=== PATIENT | male | born 1940 | race Caucasian/White ===

== ENCOUNTER → 2016-12-05 | Outpatient (CLI) | payer MEDICARE ==
[2016-12-05 13:08] LABS: ANION GAP 7 MEQ/L (5-15); AST (GOT) 15 U/L (15-37); BICARBONATE 25.6 MEQ/L (21.0-32.0); BLOOD UREA NITROGEN 21 MG/DL (7-18); CHLORIDE 106 MEQ/L (98-107); GLOMERULAR FILTRATION RATE 73 ML/MIN (>89); GLUCOSE,FASTING 90 MG/DL (74-99); POTASSIUM 4.2 MEQ/L (3.5-5.1); SODIUM (NA) 139 MEQ/L (136-145)
[2016-12-05 13:12] LABS: ALKALINE PHOSPHATASE 80 U/L (45-117); ALT (GPT) 17 U/L (12-78); FREE T4 1.52 NG/DL (0.76-1.46); LDL CHOLESTEROL 92 MG/DL (0-99); LDL CHOLESTEROL DIRECT 105 MG/DL (0-99); TOTAL BILIRUBIN ADULT 0.6 MG/DL (0.2-1.0)
[2016-12-05 13:27] LABS: HEMOGLOBIN A1a 1.1 %; HEMOGLOBIN A1b 1.8 %; HEMOGLOBIN Ao 85.1 %
== END ==
LOC: PLAB 08:51
PROVIDERS: ATTEND Family Medicine
DX: R53.83 Other fatigue (principal); E78.4 Other hyperlipidemia; E03.8 Other specified hypothyroidism; R73.01 Impaired fasting glucose
CPT/HCPCS: 36415; 80053; 80061; 83036; 83721; 84439; 85652

== ENCOUNTER 2017-05-30 08:57 | Inpatient (IN) | payer MEDICARE ==
[~2017-05-30] VITALS: Ht 180.3 cm; Wt 101.4 kg
[2017-05-30] MEDS ORDERED: SYNT175T PO (09:46)
[2017-05-30] MEDS ORDERED: TRAM50TA PO (09:46)
[2017-05-30] MEDS ORDERED: BENA25CA4 PO (09:48)
[2017-06-10] MEDS ORDERED: CHLORHEXIDINE GLUCONATE 2 % 1 PACK (2 CLOTHS) TOPICAL PRN (08:00)
[2017-06-10] MEDS ORDERED: INSULIN HUMAN REGULAR 1,000 UNITS/10 ML VIAL SQ PRN (08:00)
[2017-06-10] MEDS ORDERED: METOPROLOL TARTRATE 25 MG TAB PO PRN (08:00)
[2017-06-10] MEDS ORDERED: SODIUM CHLORID 0.9% 500 ML IV PRN (08:00)
[2017-06-10] MEDS ORDERED: LACTATED RINGER'S 1000 ML IV PRN (08:00)
[2017-06-10] MEDS ORDERED: POVIDONE IODINE 5% (ANTISEPSIS KIT) 4 APPLICATIONS EACH NARE PRN (08:00)
[2017-06-10] MEDS ORDERED: ceFAZolin 2 GM PREMIX 50 ML ONE (08:04)
[2017-06-10] MEDS ORDERED: GENTAMICIN SULFATE 80 MG/2 ML VIAL ONE (08:04)
[2017-06-10] MEDS ORDERED: TRANEXAMIC ACID IV SCH ×2 (08:15→12:00)
[2017-06-10] MEDS ORDERED: EXPAREL PERI-ARTICULAR INJECTION (TOTAL VOL. 60 ML) P-ARTICULR SCH ×2 (08:15)
[2017-06-10] MEDS ORDERED: SODIUM CHLORIDE 0.9% IV SCH ×2 (08:15→12:00)
[2017-06-10] MEDS ORDERED: ceFAZolin 2 GM PREMIX 50 ML IV SCH (08:15)
[2017-06-10] MEDS ORDERED: CHLORHEXIDINE GLUCONATE 4% SOLN 120 ML BTL TOPICAL SCH (08:15)
[2017-06-10] MEDS ORDERED: ACETAMINOPHEN 1000 MG/100 ML VIAL IV ONE (08:37)
[2017-06-10] MEDS ORDERED: Post-op Orders (for Pharmacy) MISC XX ONE (09:30)
[2017-06-10] MEDS ORDERED: MAGNESIUM HYDROXIDE SUSP 30 ML CUP PO PRN (09:30)
[2017-06-10] MEDS ORDERED: SODIUM CHLORIDE 0.9% FLUSH 5 ML FLUSH IVF PRN (09:30)
[2017-06-10] MEDS ORDERED: MORPHINE SULFATE 4 MG/ML INJ IV PUSH PRN (09:30)
[2017-06-10] MEDS ORDERED: ONDANSETRON HCL 4 MG/2 ML VIAL IVP PRN (09:30)
[2017-06-10] MEDS ORDERED: TRANEXAMIC ACID INJ 0 MG in SODIUM CHLORIDE 0.9% INJ 100 ML IV SCH (09:30)
[2017-06-10] MEDS ORDERED: ZOLPIDEM TARTRATE 5 MG TAB PO PRN (09:30)
[2017-06-10] MEDS ORDERED: diphenhydrAMINE HCL ELIXIR 12.5 MG/5 ML CUP PO PRN (10:15)
[2017-06-10] MEDS ORDERED: LACTATED RINGER'S 1000 ML INJ 1,000 ML IV ONE (12:00)
[2017-06-10] MEDS ORDERED: ONDANSETRON HCL 4 MG/2 ML VIAL IV PUSH ONE (12:00)
[2017-06-10] MEDS ORDERED: ePHEDrine/NS 25 MG/5 ML SYR IV ONE (12:00)
[2017-06-10] MEDS ORDERED: PHENYLEPH/NS 1000 MCG/10 ML SYR IV ONE (12:00)
[2017-06-10] MEDS ORDERED: PROPOFOL 200 MG/20 ML AMP IV ONE (12:00)
--- NOTE | 2017-06-10 12:33 | HHI.FF ---
Face to Face Verification Diagnosis: (1) Status post total left knee replacement Physical Therapy Gait training Knee: Total knee, Protocol: Left, Gait training, Full weight bearing Left LE Weight Bearing: WB as tolerated Left LE Range of Motion: Active ROM Additional Instructions AROM, AAROM, PROM, PRE. ROM goal is 0 to 135 degrees Nursing Nursing: Dressing changes Dressing Changes: Daily dressing change, Coverderm/Primapore Additional Instructions Remove steristrips on postop day 14. I have seen patient Lito Kowalski on 06/10/17. My clinical findings support the need for the requested home health care services because: Ltd mobility - disease progression Limited ability to care for self High risk of falls I certify that my clinical findings support that this patient is homebound because: Post-op weakness Unsteady gait/balance Unsafe to leave home unassisted Ander Wolf MD ([place]) Jun 10, 2017 12:33
[2017-06-10] MEDS ORDERED: *morphine SULFATE 8 MG/ML PERIprocedure ONLY ONE (13:00)
[2017-06-10] MEDS: LACTATED RINGER'S 1000 ML INJ 1,000 ML IV SCH ×2 (13:00→22:33)
[2017-06-10] MEDS: KETOROLAC TROMETHAMINE 30 MG/ML (IVP) VIAL IVP SCH ×2 (13:00→17:00)
[2017-06-10] MEDS ORDERED: DO NOT ADM ANY ANTICOAGULANT DRUGS PRN (13:15)
--- NOTE | 2017-06-10 15:35 | PD.CONS ---
[facility] By Dr. Vero Wolf Reason for Consult Medical management Primary Care Physician Price Molina MD Diagnoses: History of Present Illness This is a 76-year-old male presenting with chronic left knee pain affecting his activities of daily living. He has osteoarthritis underwent total knee replacement by Dr. Vero Wolf who requested consultation to evaluate and manage multiple medical conditions. Anesthesia records reviewed. He was hemodynamically stable. Received 1400 mL crystalloid and EBL 100 mL. In the preop area, he was noted to have irregular heartbeat on telemetry. Preop EKG showed sinus arrhythmia. Patient reports that a generator technician was contacted and cleared him for surgery today. Patient states he had a repeat EKG at his [facility] which showed sinus rhythm. He also was evaluated by his oncologist less than a year ago and underwent unremarkable echocardiogram. Denies chest pain, palpitations and shortness of breath. He also has hypothyroidism with therapeutic TSH on Synthroid, obstructive sleep apnea on C Pap since 2005 and melanoma status post removal from his face followed by Dr. Roth. At this time , he reports of numbness of the left lower extremity status post nerve block. All other systems reviewed negative Review of Systems Except as stated in HPI: all other systems reviewed are Neg Past Family Social History Allergies: Uncoded Allergies: 3 M ADHESIVE TAPE (Allergy, Severe, RASH, 05/30/17) CALCIUM DISODIUM EDTA (Allergy, Severe, RASH, 05/30/17) TRIPLE ANTIBIOTIC OINTMENT (Allergy, Mild, Rash, 06/10/17) Past Medical History As previously mentioned Past Surgical History Extensive surgical history including tonsillectomy, cataract surgery, left biceps abscess evacuation, bunionectomy, so shoulder replacement, hip replacement and subsequent revision, right knee replacement carpal tunnel release, cholecystectomy, Reported Medications Benadryl Allergy (Diphenhydramine HCl) 25 Mg Cap 12.5 Mg PO DIRECTED PRN Tramadol (Tramadol HCl) 50 Mg Tab 50 Mg PO Q6H PRN Synthroid (Levothyroxine Sodium) 175 Mcg Tab 175 Mcg PO DAILY Family History Diabetes mellitus Social History Quit tobacco and -[id number] pack year smoking history occasional alcohol use Physical Exam Vital Signs Vital Signs Date Time Temp Pulse Resp B/P Pulse Ox O2 Delivery O2 Flow Rate FiO2 06/10/17 12:45 72 15 148/78 99 Simple Mask 8 06/10/17 12:37 97.5 75 18 149/87 97 Simple Mask 8 Physical Exam GENERAL: This is a well-nourished, well-developed patient, in no apparent distress. SKIN: No rashes, ecchymoses or lesions. Cool and dry. HEAD: Atraumatic. Normocephalic. No temporal or scalp tenderness. EYES: Pupils equal round and reactive. Extraocular motions intact. No scleral icterus. No injection or drainage. ENT: Nose without bleeding, purulent drainage or septal hematoma. Throat without erythema, tonsillar hypertrophy or exudate. Uvula midline. Airway patent. NECK: Trachea midline. No JVD or lymphadenopathy. Supple, nontender, no meningeal signs. CARDIOVASCULAR: Regular rate and regular rhythm without murmurs, gallops, or rubs. RESPIRATORY: Clear to auscultation. Breath sounds equal bilaterally. No wheezes , rales, or rhonchi. GASTROINTESTINAL: Abdomen soft, non-tender, nondistended. No guarding. MUSCULOSKELETAL: Extremities without clubbing, cyanosis, or edema. Left lower extremity in a CPM NEUROLOGICAL: Awake and alert. Cranial nerves II through XII intact. Motor and sensory grossly within normal limits. Five out of 5 muscle strength in all muscle groups. Normal speech. Laboratory Preop labs reviewed unremarkable CBC, INR, BMP and urinalysis. TSH therapeutic. EKG tracing interpreted by me with sinus arrhythmia Laboratory Tests Test 06/10/17 08:10 Blood Type A POSITIVE Antibody Screen NEGATIVE Blood Bank Comment Assessment and Plan Assessment and Plan This is a 76-year-old male presenting with chronic left knee pain affecting his activities of daily living. He has osteoarthritis underwent total knee replacement by Dr. Vero Wolf who requested consultation to evaluate and manage multiple medical conditions. Anesthesia records reviewed. He was hemodynamically stable. Received 1400 mL crystalloid and EBL 100 mL. he is stable continue postoperative care with physical therapy, wound care, incentive spirometry, DVT prophylaxis with aspirin and pain management with Lortab and IV morphine. Sinus arrhythmia. Patient has had multiple evaluations for arrhythmia and has been ruled out for A. fib. Patient is asymptomatic. TSH is therapeutic. Hypothyroidism with therapeutic TSH on Synthroid Obstructive sleep apnea on C Pap since 2005 . Continue C Pap with home settings Melanoma status post removal from his face followed by Dr. Roth. Outpatient follow-up Discussed Condition With Patient Rene Woodward MD Jun 10, 2017 15:35
[2017-06-10 16:00] VITALS: BP 147/97; PULSE 62; RESP 18; TEMP 97; O2SAT 100
--- NOTE | 2017-06-10 16:08 | RADRPT ---
EXAM DATE/TIME: 06/10/2017 12:50 [place] COMPARISON: No previous studies available for comparison. INDICATIONS : Post op left toal knee replacement. MEDICAL HISTORY : None. SURGICAL HISTORY : None. ENCOUNTER: Initial ACUITY: 1 day PAIN SCORE: Non-responsive. LOCATION: Left knee. FINDINGS: Two view examination of the left knee patient is status post total knee replacement. The prosthetic c omponents appear well-placed. There is a suprapatellar drain in place. No fracture is seen. CONCLUSION: Good placement of a total knee prosthesis. Bipin Galeas MD on June 10, 2017 at 16:05 Board Certified Radiologist. This report was verified electronically.
[2017-06-10 17:45] VITALS: O2SAT 96
[2017-06-10 19:51] VITALS: BP 149/78; PULSE 65; RESP 18; TEMP 97.3; O2SAT 98
[2017-06-10] MEDS: ASPIRIN EC 81 MG TABEC PO SCH (21:00)
[2017-06-10] MEDS: SODIUM CHLORIDE 0.9% FLUSH 5 ML FLUSH IVF SCH (21:00)
--- NOTE | 2017-06-10 23:27 | MP ---
cc: Zacarias JACOBSON. DATE OF SURGERY 06/10/17 PREOPERATIVE DIAGNOSIS Primary osteoarthritis left knee POSTOPERATIVE DIAGNOSIS Primary osteoarthritis left knee OPERATION PERFORMED Left total knee arthroplasty with Jas triathlon prosthesis (uncemented). SURGEON Carlo Jacobson MD CLOUD SUBJECT MATTER EXPERT Sandy WILDER. ANESTHESIA Spinal with supplemental adductor canal block and local. INDICATIONS AND FINDINGS This 76-year-old man has had left knee pain for over 2 years which has progressively worsened over the past 9 months. He can walk up to 30 minutes but has to stop because of pain. He has difficulty standing from a seated position with significant crepitation. He has difficulty ascending and descending stairs. Treatment has included analgesics, anti-inflammatory agents, activity modification, intra-articular corticosteroids, visco-supplementation and exercises. He also uses some ambulatory aids. Physical findings showed some significant deformity, particularly in his medial suprapatellar area with there being crepitation in the medial, lateral and patellofemoral compartments. Imaging studies showed severe osteoarthritis in the left knee with loss of articular cartilage to [id number] in the medial and lateral compartments with prominent medial and lateral osteophytes and a large irregular osteophyte in the medial aspect of the patellofemoral joint. There was also deformity in the patellofemoral joint. A CT scan confirmed these findings. The prosthesis used was a [place] triathlon prosthesis with the femur being a size seven cruciate-retaining with a porous coated backing, the tibia being a tritanium baseplate size eight (uncemented) and the spacer being a cruciate-retaining 9 mm spacer of X3 polyethylene and the patella being a tritanium backed patella size 35 mm asymmetric. PROCEDURE IN DETAIL The patient was brought to the clean-air operating suite where a spinal anesthetic was administered followed by an adductor canal block. He was placed in the supine position on the operating table with a small bolster under the left hip. A pneumatic tourniquet was applied to the left thigh. The limb was then prepped with alcohol, Hibiclens and Chloraprep and draped in the usual manner with the knee draped free. An appropriate time-out procedure was carried out. Local anesthesia was administered with Exparel during the procedure at various intervals. After the appropriate time-out and local anesthetic in the skin, an incision was made from about three fingerbreadths above the superior medial pole of the patella down to the tibial tubercle. The incision was deepened through the subcutaneous tissues to the retinacular structures which were exposed medially and laterally. A medial retinacular incision was made from the superior medial pole of patella down to the tibial tubercle and then up to the quadriceps tendon splitting it longitudinally in the medial one-third. The patella was reflected. Medial and lateral dissection was carried out. Attention was directed to the patella. After debulking the infrapatellar fat pad, the patella clamps were applied. The posterior surface of patella was excised with the oscillating saw taking care to prevent injuries to the extensor mechanism. A patella protector was applied to the posterior surface of the patella. The patella was slipped into the lateral gutter. Fenestration was made in the distal femur and proximal tibia for intermedullary referencing guides. a distal femoral cutting guide and jig were assembled for a 5 degree 8-mm cut. At this time, it was found that the cutting guide would not position appropriately because of the large osteophyte and bone fragment on the superior medial aspect of the medial femoral condyle. This was then initially partially debulked with the oscillating saw to get this to a reasonable size. The distal femoral cutting guide and jig were assembled for the 5 degree 8-mm cut and then where the cutting block was stabilized with pins at this time. The distal femoral cut was made with the oscillating saw. A sizing guide was then positioned along the epicondylar axis. White sides line was obliterated due to arthritis. With this positioned appropriately, the size was determined to be a size seven. The 4:1 cutting block was positioned in place and stabilized with pins. Anterior and posterior cuts were made followed by posterior and anterior chamfer cuts. The femoral cuts were then assessed with the stylus. Osteophytes were trimmed from the femur. Medial and lateral meniscectomies were initiated. The proximal tibial cutting guide and jig was then assembled appropriately and positioned for rotation. The depth of cut was verified off the low side on the medial side resecting 2 mm. The cutting guide was stabilized with pins. The jig was removed. The distal proximal tibial cut was completed with the oscillating saw taking care to prevent injury to neurovascular and ligamentous structures. The spacer block verified this was an appropriate cut. The osteophytes were trimmed from the tibia and the femur. The femoral posterior osteophytes were removed. The tibial trial prosthesis was inserted for a size eight. Nine mm spacer was inserted. The femoral component which was a size seven was impacted into place. The patella drill guide was positioned for a 32 mm asymmetric patella. After drill holes were made, the trial prosthesis was inserted into this. The tibial implant was stabilized with pins. The range of motion was checked and was found to be 0 degrees extension to about 145 degrees of flexion with excellent stability throughout the entire range. This was done with the retinaculum closed with a towel clip. The femoral drill holes were made. Femoral and patella trials were removed. The tibial spacer trial was removed. The tibial punch was impacted through its guide after placement of bone graft in the proximal tibia. The tibial drill guide was positioned in place and drill holes made. Osteophytes were trimmed from the tibia as well. Local antibiotic was then administered throughout the knee posteriorly and into the capsular areas. The tibial baseplate which was a size eight tritanium was impacted into place and seated appropriately. A 9 mm spacer was inserted. This was impacted into place. The femoral component was then impacted into place onto the cleaned and dried femoral surface. This showed excellent position and alignment. The patella was positioned in place and stabilized using the patella vice. The knee was taken through a range of motion which was comparable to that with a trial prosthesis. The stability was excellent. Drains were brought out the superolateral aspect of the suprapatellar pouch. Wound closure then commenced using 0 Vicryl interrupted [id number] sutures for the retinacular structures and capsular structures, 2-0 Vicryl interrupted simple sutures with buried knots for the subcutaneous tissues and 4-0 Monocryl continuous subcuticular closure for the skin. The wound was dressed with Steri-Strips followed by dry dressing, sterile Sof-Rol, cooling pad, further sterile Sof-Rol and Kevin bandage from the base of the toe to mid thigh. The patient was transferred to the recovery room in satisfactory condition having tolerated the procedure well. Counts were correct. Specimens none. Estimated blood loss 250 mL. MD SAVANNAH Welsh/ /12:16 PM /10:56 PM
[2017-06-11] VITALS (7 sets, daily range): BP systolic 132–162; BP diastolic 78–99; PULSE 68–99; RESP 18; TEMP 96.8–98.5; O2SAT 94–97
[2017-06-11] MEDS: KETOROLAC TROMETHAMINE 30 MG/ML (IVP) VIAL IVP SCH ×4 (02:02→16:41)
[2017-06-11] MEDS ORDERED: LEVOTHYROXINE SODIUM 75 MCG TAB PO SCH (06:00)
[2017-06-11] MEDS ORDERED: LEVOTHYROXINE SODIUM 100 MCG TAB PO SCH (06:00)
--- NOTE | 2017-06-11 06:56 | PD.ORT.PN ---
Subjective Post Op Day #: 1 Subjective Remarks He is doing well. There is almost no pain at rest and only 5/10 walking. Range of Motion -15 to 80 degrees. Distance Walked 15 feet with PT. Objective Vitals Vital Signs Date Time Temp Pulse Resp B/P Pulse Ox O2 Delivery O2 Flow Rate FiO2 06/11/17 04:15 98.5 88 18 158/91 96 06/11/17 00:33 98.3 78 18 134/78 97 06/10/17 19:51 97.3 65 18 149/78 98 06/10/17 19:38 Room Air 06/10/17 18:40 16 06/10/17 17:45 96 21 06/10/17 16:00 97.0 62 18 147/97 100 06/10/17 15:30 97.6 75 16 150/82 96 Room Air 06/10/17 15:00 72 16 152/83 95 Room Air 06/10/17 14:30 69 15 153/82 94 Room Air 06/10/17 14:00 97.5 67 15 150/84 99 Nasal Cannula 2 06/10/17 13:45 69 15 156/88 98 Nasal Cannula 2 06/10/17 13:30 67 15 155/85 97 Nasal Cannula 2 06/10/17 13:15 68 15 163/81 98 Nasal Cannula 3 06/10/17 13:00 70 15 151/83 96 Nasal Cannula 3 06/10/17 12:45 72 15 148/78 99 Simple Mask 8 06/10/17 12:37 97.5 75 18 149/87 97 Simple Mask 8 I/O 06/10/17 06/10/17 06/10/17 06/11/17 06/11/17 06/11/17 06:59 14:59 22:59 06:59 14:59 22:59 Intake Total 1400 ml 1274 ml 1058 ml Output Total 1050 ml 1020 ml 860 ml Balance 350 ml 254 ml 198 ml Intake Oral 360 ml 360 ml IV Total 914 ml 698 ml Other 1400 ml Output Urine Total 950 ml 350 ml 800 ml Drainage Total 670 ml 60 ml Estimated Blood Loss 100 ml # Bowel Movements 0 0 Imaging Last 24 hours Impressions Knee X-Ray 06/10/17 0924 Signed Impressions: Service Date/Time: Saturday, June 10, 2017 12:50 - CONCLUSION: Good placement of a total knee prosthesis. Bipin Galeas MD Objective Remarks He is resting comfortably, OOB in the chair.. The neurovascular status is intact. The dressing is dry and intact. Assessment & Plan Ortho Post Op Day #: 1 Problem List: (1) Status post total left knee replacement Plan: Continue postop care and PT. Assessment and Plan Condition: Good. Orthopaedically stable. DVT prophylaxis: TEDs, ASA, sequentials. Discharge plans: Home with [facility]. Has appointment. Rx: [place] 7.5/325. Ander Wolf MD ([place]) Jun 11, 2017 06:56
[2017-06-11] MEDS ORDERED: HYDR-3580 PO (07:25)
[2017-06-11] MEDS ORDERED: ASPI-99 PO (07:26)
[2017-06-11 07:41] LABS: HEMATOCRIT 32.3 % (39.0-51.0); REVIEW FLAG FINAL
[2017-06-11] MEDS: SODIUM CHLORIDE 0.9% FLUSH 5 ML FLUSH IVF SCH (09:00)
[2017-06-11] MEDS: ASPIRIN EC 81 MG TABEC PO SCH (09:00)
[2017-06-11] MEDS: ACETAMINOPHEN/HYDROcodone 325 MG/7.5 MG TAB PO PRN ×4 (09:24→18:53)
[2017-06-11] MEDS: LACTATED RINGER'S 1000 ML INJ 1,000 ML IV SCH (10:24)
--- NOTE | 2017-06-11 11:35 | HHI.PR ---
Subjective Remarks Follow-up orthopedic surgery. Doing okay out of bed to chair required by mouth and IV narcotic. Objective Vitals Vital Signs Date Time Temp Pulse Resp B/P Pulse Ox O2 Delivery O2 Flow Rate FiO2 06/11/17 10:09 95 06/11/17 08:00 96.8 84 18 162/99 95 06/11/17 04:15 98.5 88 18 158/91 96 06/11/17 00:33 98.3 78 18 134/78 97 06/10/17 19:51 97.3 65 18 149/78 98 06/10/17 19:38 Room Air 06/10/17 18:40 16 06/10/17 17:45 96 21 06/10/17 16:00 97.0 62 18 147/97 100 06/10/17 15:30 97.6 75 16 150/82 96 Room Air 06/10/17 15:00 72 16 152/83 95 Room Air 06/10/17 14:30 69 15 153/82 94 Room Air 06/10/17 14:00 97.5 67 15 150/84 99 Nasal Cannula 2 06/10/17 13:45 69 15 156/88 98 Nasal Cannula 2 06/10/17 13:30 67 15 155/85 97 Nasal Cannula 2 06/10/17 13:15 68 15 163/81 98 Nasal Cannula 3 06/10/17 13:00 70 15 151/83 96 Nasal Cannula 3 06/10/17 12:45 72 15 148/78 99 Simple Mask 8 06/10/17 12:37 97.5 75 18 149/87 97 Simple Mask 8 I/O 06/10/17 06/10/17 06/10/17 06/11/17 06/11/17 06/11/17 07:00 15:00 23:00 07:00 15:00 23:00 Intake Total 1400 ml 1274 ml 1058 ml Output Total 1050 ml 1020 ml 860 ml 30 ml Balance 350 ml 254 ml 198 ml -30 ml Intake Oral 360 ml 360 ml IV Total 914 ml 698 ml Other 1400 ml Output Urine Total 950 ml 350 ml 800 ml Drainage Total 670 ml 60 ml 30 ml Estimated Blood Loss 100 ml # Bowel Movements 0 0 Result Diagram: 06/11/17 0435 Imaging Last Impressions Knee X-Ray 06/10/1794 Signed Impressions: Service Date/Time: Saturday, June 10, 2017 12:50 - CONCLUSION: Good placement of a total knee prosthesis. Bipin Galeas MD Objective Remarks Well-developed, well-nourished in no distress Skin intact with no rashes warm and dry Regular rate and rhythm Clear to auscultation equal in expansion Abdomen soft nontender Dry dressing over knee. No edema Alert and oriented nonfocal A/P Assessment and Plan This is a 76-year-old male presenting with chronic left knee pain affecting his activities of daily living. He has osteoarthritis underwent total knee replacement by Dr. Vero Wolf who requested consultation to evaluate and manage multiple medical conditions. Anesthesia records reviewed. He was hemodynamically stable. Received 1400 mL crystalloid and EBL 100 mL. He is stable continue postoperative care with physical therapy, wound care, incentive spirometry, DVT prophylaxis with aspirin and pain management with Lortab and IV morphine. Postoperative anemia secondary to acute blood loss. Hemodynamically stable. Sinus arrhythmia. Patient has had multiple evaluations for arrhythmia and has been ruled out for A. fib. Patient is asymptomatic. TSH is therapeutic. Hypothyroidism with therapeutic TSH on Synthroid Obstructive sleep apnea on C Pap since 2005 . Continue C Pap with home settings Melanoma status post removal from his face followed by Dr. Lozano. Outpatient follow-up Rene Woodward MD Jun 11, 2017 11:35
[2017-06-11] MEDS ORDERED: DOCUSATE SODIUM 100 MG CAP PO SCH (21:00)
== END 2017-06-11 21:26 | disposition home health service (06) | DRG 470 ==
LOC: HSDI 06-10 07:21 → N06A 06-10 15:50
PROVIDERS: ADMIT Orthopaedic Surgery; ATTEND Orthopaedic Surgery
PROC: 0SRD0JA Replacement of Left Knee Joint with Synthetic Substitute, Uncemented, Open Approach (ICD-10-PCS; principal; 2017-06-10 09:18)
DX: M17.12 Unilateral primary osteoarthritis, left knee (principal); I49.8 Other specified cardiac arrhythmias; D62 Acute posthemorrhagic anemia; E03.9 Hypothyroidism, unspecified; G47.33 Obstructive sleep apnea (adult) (pediatric); Z85.820 Personal history of malignant melanoma of skin; Z96.649 Presence of unspecified artificial hip joint; Z96.619 Presence of unspecified artificial shoulder joint; Z96.651 Presence of right artificial knee joint; Z87.891 Personal history of nicotine dependence
CPT/HCPCS: 73560; 85014; 85018; 86850; 86900; 86901; 94150; C1776; C9290; J0131; J0690; J1580; J1885; J2270; J2370; J2405; J7120

== ENCOUNTER → 2017-05-30 | Outpatient (CLI) | payer MEDICARE ==
[~2017-05-30] MED LIST: BENA25CA4 PO; SYNT175T PO; TRAM50TA PO
[2017-05-30 10:26] LABS: HEMATOCRIT 39.5 % (39.0-51.0); MEAN CELL VOLUME 82.9 FL (80.0-100.0); MEAN CORPUSCULAR HEMOGLOBIN 28.1 PG (27.0-34.0); MEAN CORPUSCULAR HGB CONC 33.9 % (32.0-36.0); PLATELET COUNT 201 TH/MM3 (150-450); RED BLOOD COUNT 4.77 MIL/MM3 (4.50-5.90); RED CELL DISTRIBUTION WIDTH 15.3 % (11.6-17.2); REVIEW FLAG FINAL
[2017-05-30 10:36] LABS: APTT (PATIENT) 28.5 SEC (24.3-30.1); PROTHROMBIN TIME - PATIENT 10.9 SEC (9.8-11.6)
[2017-05-30 10:51] LABS: POTASSIUM 3.7 MEQ/L (3.5-5.1)
[2017-05-30 11:25] LABS: BLOOD, URINE SMALL (NEG); COMMENT (UR) CULT NOT INDICATED; CULTURE IF INDICATED CULT NOT INDICATED; GLUCOSE,URINE NEG (NEG); KETONE, URINE NEG (NEG); NITRITE,URINE NEG (NEG); URINE COLOR YELLOW (YELLW/STRAW)
== END ==
LOC: CPRE 08:53
PROVIDERS: ATTEND Orthopaedic Surgery
DX: Z01.812 Encounter for preprocedural laboratory examination (principal); M17.12 Unilateral primary osteoarthritis, left knee; M79.609 Pain in unspecified limb
CPT/HCPCS: 80048; 81001; 85027; 85610; 85730

== ENCOUNTER → 2017-05-30 | Outpatient (CLI) | payer MEDICARE ==
[2017-05-30 11:02] LABS: FREE T4 1.61 NG/DL (0.76-1.46)
--- NOTE | 2017-05-30 13:59 | EKG ---
Date Performed: 05/30/2017 Time Performed: 09:38:26 PTAGE: 76 years EKG: Marked sinus arrhythmia MARKED LEFT AXIS DEVIATION ABNORMAL ECG NO PREVIOUS TRACING DOCTOR: Jarocho Rivera Interpretating Date/Time 05/30/2017 13:57:18
== END ==
LOC: CPRE 09:00
PROVIDERS: ATTEND Family Medicine
DX: Z01.812 Encounter for preprocedural laboratory examination (principal); Z01.810 Encounter for preprocedural cardiovascular examination; E03.8 Other specified hypothyroidism; R94.31 Abnormal electrocardiogram [ECG] [EKG]
CPT/HCPCS: 84439; 84443; 93005

== ENCOUNTER → 2017-07-15 | Outpatient (CLI) | payer MEDICARE ==
[~2017-07-15] MED LIST changes: +ASPI-110 PO; +ASPI-99 PO; +HYDR-3580 PO; -TRAM50TA PO; +TRIAPOW TOPICAL
[2017-07-15 15:45] LABS: HEMATOCRIT 35.6 % (39.0-51.0); MEAN CELL VOLUME 84.1 FL (80.0-100.0); MEAN CORPUSCULAR HGB CONC 33.2 % (32.0-36.0); PLATELET COUNT 208 TH/MM3 (150-450); RED BLOOD COUNT 4.23 MIL/MM3 (4.50-5.90); RED CELL DISTRIBUTION WIDTH 15.9 % (11.6-17.2); REVIEW FLAG FINAL; WHITE BLOOD COUNT 6.4 TH/MM3 (4.0-11.0)
== END ==
LOC: PLAB 12:54
PROVIDERS: ATTEND Family Medicine
DX: D64.9 Anemia, unspecified (principal)
CPT/HCPCS: 36415; 85027

== ENCOUNTER 2017-08-28 05:13 | Observation (INO) | payer MEDICARE ==
[~2017-08-28] VITALS: Ht 179.1 cm; Wt 100.4 kg
[~2017-08-28 05:13] MED LIST changes: -ASPI-110 PO; -ASPI-99 PO; +ASPI1TAB57 PO
[2017-08-28] MEDS ORDERED: LACTATED RINGER'S 1000 ML IV PRN (05:45)
[2017-08-28] MEDS ORDERED: SODIUM CHLORID 0.9% 500 ML IV PRN (05:45)
[2017-08-28] MEDS ORDERED: POVIDONE IODINE 5% (ANTISEPSIS KIT) 4 APPLICATIONS EACH NARE PRN (05:45)
[2017-08-28] MEDS ORDERED: INSULIN HUMAN REGULAR 1,000 UNITS/10 ML VIAL SQ PRN (05:45)
[2017-08-28] MEDS ORDERED: METOPROLOL TARTRATE 25 MG TAB PO PRN (05:45)
[2017-08-28] MEDS ORDERED: CHLORHEXIDINE GLUCONATE 2 % 1 PACK (2 CLOTHS) TOPICAL PRN (05:45)
[2017-08-28] MEDS ORDERED: ceFAZolin 1,000 MG/NS 100 ML IV SCH ×2 (06:00)
[2017-08-28] MEDS ORDERED: BUPIVACAINE/EPINEPHRINE 0.5% PF 30 ML VIAL ONE (06:08)
[2017-08-28] MEDS ORDERED: GENTAMICIN SULFATE 80 MG/2 ML VIAL ONE (06:10)
[2017-08-28] MEDS ORDERED: BUPIVACAINE LIPOSOME PF 1.3% 20 ML VIAL ONE (06:28)
[2017-08-28] MEDS ORDERED: BUPIVACAINE LIPOSO PF 1.3% INJ 20 ML in SODIUM CHLORIDE 0.9% INJ 40 ML IRRIGATION SCH (07:15)
[2017-08-28] MEDS ORDERED: DO NOT ADM ANY ANTICOAGULANT DRUGS PRN (09:16)
--- NOTE | 2017-08-28 09:27 | HHI.PR ---
Immediate Post Op Note Procedure Date: Aug 28, 2017 Pre Op Diagnosis: (1) Lateral dislocation of left patella (2) Status post total left knee replacement Post Op Diagnosis: (1) Lateral dislocation of left patella (2) Status post total left knee replacement Surgeon: Gonzalo Wolf MD Shirt Finisher(s): TINA Rabago Procedure: Medial capsular and medial patellofemoral ligament plication, vastus medialis obliquus advancement and lateral retinacular release and lengthening left knee. Findings: Lateral patellar laxity Complications: none Specimen(s) removed: none Estimated blood loss: 25 ml Anesthesia: Regional Block, Spinal, Local Drains: None IVF Patient to: PACU Patient Condition: Ander Kimbrough MD ([place]) Aug 28, 2017 09:27
[2017-08-28] MEDS ORDERED: ACETAMINOPHEN/HYDROcodone 325 MG/5 MG TAB PO PRN (09:30)
[2017-08-28] MEDS ORDERED: MORPHINE SULFATE 4 MG/ML INJ IV PUSH PRN (09:30)
[2017-08-28] MEDS ORDERED: SODIUM CHLORIDE 0.9% FLUSH 5 ML FLUSH IVF PRN (09:30)
[2017-08-28] MEDS ORDERED: ONDANSETRON HCL 4 MG/2 ML VIAL IV PUSH PRN (09:30)
--- NOTE | 2017-08-28 11:10 | MP ---
cc: Zacarias JACOBSON. DATE OF SURGERY 08/28/2017 PREOPERATIVE DIAGNOSIS Collateral patellar instability, left total knee POSTOPERATIVE DIAGNOSIS Collateral patellar instability, left total knee OPERATION PERFORMED Left knee arthrotomy with medial capsular and medial patellofemoral ligament plication, vastus medialis obliquus advancement and lateral retinacular release and lengthening left knee SURGEON Ander Jacobson MD [facility] Ember WILDER ANESTHESIA Spinal with supplemental adductor canal block and local. INDICATIONS AND FINDINGS This 76-year-old man had a left total knee arthroplasty carried out on 06/10/2017. Physical therapist had him do some weight lifting with weights on his ankle and he felt a snap in the superior medial aspect of the patella which caused pain. His patella tracking became lateral with instability. In spite of exercises and the use of brace he has had difficulty with this. His physical findings showed lateral tracking of the patella and lateral subluxation particularly on extension. With his knee very flexed he had good positioning. Operative findings were consistent with this with tight lateral retinaculum and redundant medial retinaculum. The medial patellofemoral ligament when grasped had good integrity. Prior to the procedure there was instability of the patella. After the procedure the instability and tracking were improved. He had range of motion from 0 degrees extension to 120 degrees of flexion at the conclusion of the procedure. PROCEDURE The patient was brought to the clean-air operating suite. Spinal anesthetic was administered followed by an adductor canal block with Exparel. He was then placed in the supine position on the operating table with a bolster under the left hip and a tourniquet about the left thigh. The patient was then prepped with alcohol, Hibiclens and Chloraprep and draped in the usual manner with the knee draped free. He received prophylactic antibiotic in the form of Ancef according to protocol. An appropriate time-out procedure was carried out. His incision was made incorporating the entire proximal aspect of the previous incision and going down to about the level of the joint line with the lowest portion not being opened. The incision was deepened through subcutaneous tissues to the anterior retinacular areas. Dissection was carried out medially and laterally more proximally finding a non-violated area without much scarring which allowed for further dissection. After this dissection was carried out, a medial retinacular incision was then made approximately 10 mm medial to the edge of the patella starting at the superior and medial pole of the patella. This was carried down to the joint line approximately but did not go through the synovium and capsule. A small capsular incision was made allowing for removal of fluid from the joint which was xanthochromic. After this was done the dissection was carried out slightly more proximally medially to see where the advancement could come. The vastus medialis obliquus knee offs oblique appeared to be appropriate for advancement and plication of the medial capsule appeared to be appropriate. The integrity of the medial patellofemoral ligament appeared to be good. Attention was directed laterally. A lateral retinacular release was started just above the patella and went down to about the joint line laterally. This was then deepened with only a small portion entering the joint itself. This allowed for significant released and better tracking. With this positioned appropriately and using Krackow suture, the medial patellofemoral ligament was reefed and repaired back to the patella area. This was reattached in this area with Dieter-Be sutures. With this tied in place, the knee was taken through a range of motion and showed excellent mobility to 120 degrees and appropriate tracking of the patella. At this time, using a combination of Krackow sutures and Dieter-Be sutures, the medial retinaculum was brought in a [id number]-[id number]-[id number] manner to tighten the medial aspect of the knee. The vastus medialis obliquus was then advanced to the anterior aspect of the patella in a similar manner and tightened down with Dieter-Be sutures. The knee was taken through a range of motion which showed excellent mobility as noted to 120 degrees with appropriate tracking of the patella. The lateral retinacular portions were then repaired placing some of the lateral portion with fairly loose sutures to the posterior portion of the retinaculum giving in effect lengthening of the lateral retinaculum with some closure to the subcutaneous areas. There being very little bleeding, no drains were placed. The subcutaneous fascial structures were repaired with 0 Vicryl interrupted [id number] sutures. The subcutaneous tissues were closed with 2-0 Vicryl interrupted simple sutures with buried knots. The skin was closed with continuous subcuticular closure of 4-0 Monocryl. Steri-Strips were applied, followed by a silver impregnated dressing and further wrapped with an Kevin bandage. The patient was transferred from the operating room to the recovery room in satisfactory condition having tolerated the procedure well. COUNTS Correct. SPECIMENS None. ESTIMATED BLOOD LOSS 25 mL. MD SAVANNAH Welsh/VERONA /9:42 AM /10:54 AM
[2017-08-28] MEDS ORDERED: ceFAZolin 2 GM PREMIX 50 ML IV ONE (11:30)
[2017-08-28] MEDS ORDERED: PROPOFOL 200 MG/20 ML AMP IV ONE (12:00)
[2017-08-28] MEDS ORDERED: ePHEDrine/NS 25 MG/5 ML SYR IV ONE (12:00)
[2017-08-28] MEDS ORDERED: MIDAZOLAM HCL 2 MG/2 ML VIAL IV ONE (12:00)
[2017-08-28] MEDS ORDERED: PHENYLEPHRINE HCL 10 MG/ML VIAL IV ONE (12:00)
[2017-08-28 14:00] VITALS: BP 152/107; PULSE 89; RESP 16; TEMP 97.6; O2SAT 96
[2017-08-28] MEDS: ACETAMINOPHEN/HYDROcodone 325 MG/5 MG TAB PO PRN ×2 (17:39→21:53)
[2017-08-28 20:00] VITALS: BP 131/73; PULSE 81; RESP 17; TEMP 97.2; O2SAT 98
[2017-08-28] MEDS: ceFAZolin 2 GM PREMIX 50 ML IV SCH (21:04)
[2017-08-28] MEDS: SODIUM CHLORIDE 0.9% FLUSH 5 ML FLUSH IVF SCH (21:04)
[2017-08-29] VITALS: BP 143/82; PULSE 67; RESP 16; TEMP 98.3; O2SAT 95
[2017-08-29] MEDS: ceFAZolin 2 GM PREMIX 50 ML IV SCH (03:07)
[2017-08-29] MEDS: ACETAMINOPHEN/HYDROcodone 325 MG/5 MG TAB PO PRN ×3 (03:07→12:07)
[2017-08-29 03:10] VITALS: BP 170/90; PULSE 79; RESP 20; TEMP 97.1; O2SAT 95
--- NOTE | 2017-08-29 07:13 | PD.ORT.PN ---
Subjective Post Op Day #: 1 Subjective Remarks He is doing well today. There is much less pain than yesterday. Distance Walked 30 feet, 4 times. Objective Vitals Vital Signs Date Time Temp Pulse Resp B/P (MAP) Pulse Ox O2 Delivery O2 Flow Rate FiO2 08/29/17 03:10 97.1 79 20 170/90 (116) 95 08/29/17 00:00 98.3 67 16 143/82 (102) 95 08/28/17 20:00 97.2 81 17 131/73 (92) 98 08/28/17 14:00 97.6 89 16 152/107 (122) 96 08/28/17 11:43 97.3 66 18 163/97 (119) 99 08/28/17 10:57 97.6 74 18 152/98 (116) 100 08/28/17 10:45 56 18 160/90 (113) 98 Room Air 08/28/17 10:30 98.0 60 18 172/90 (117) 98 Room Air 08/28/17 10:15 59 17 157/94 (115) 98 Room Air 08/28/17 10:00 58 17 173/89 (117) 99 Room Air 08/28/17 09:45 53 19 146/90 (108) 99 Room Air 08/28/17 09:30 55 17 136/85 (102) 98 Room Air 08/28/17 09:20 98.9 64 17 134/92 (106) 95 Room Air I/O 08/28/17 08/28/17 08/28/17 08/29/17 08/29/17 08/29/17 07:00 15:00 23:00 07:00 15:00 23:00 Intake Total 1010 ml 770 ml 530 ml Output Total 1000 ml 500 ml 450 ml Balance 10 ml 270 ml 80 ml Intake Oral 360 ml 720 ml 480 ml IV Total 50 ml 50 ml 50 ml Other 600 ml Output Urine Total 500 ml 450 ml Other 1000 ml # Voids 3 Objective Remarks He is resting comfortably, supine in bed. The neurovascular status is intact. The dressing is dry and intact. Assessment & Plan Ortho Post Op Day #: 1 Problem List: (1) Lateral dislocation of left patella ICD Codes: S83.015A - Lateral dislocation of left patella, initial encounter (2) Status post total left knee replacement ICD Codes: Z96.652 - Presence of left artificial knee joint Status: Acute Assessment and Plan Condition: Good. Orthopaedically stable. DVT prophylaxis: ASA, sequentials, TEDs. Discharge plans: Home with HHC after PT. Has appointment. Rx [place] 7.5/325 Ander Wolf MD (Charles) Aug 29, 2017 07:13
--- NOTE | 2017-08-29 07:29 | HHI.FF ---
Face to Face Verification Diagnosis: (1) Status post total left knee replacement (2) Lateral dislocation of left patella Nursing Nursing: Dressing changes Dressing Changes: Daily dressing change, Coverderm/Primapore Additional Instructions Daily DSD to start at postop day 7. Dressing stays in place until then. Remove steristrips on postop day 14. I have seen patient Lito Kowalski on 08/29/17. My clinical findings support the need for the requested home health care services because: Ltd mobility - disease progression Limited ability to care for self High risk of falls I certify that my clinical findings support that this patient is homebound because: Post-op weakness Unsteady gait/balance Unsafe to leave home unassisted Ander Wolf MD (Charles) Aug 29, 2017 07:29
[2017-08-29] MEDS ORDERED: ACETAMINOPHEN/HYDROcodone 325 MG/7.5 MG TAB PO PRN (07:30)
[2017-08-29] MEDS ORDERED: ASPIRIN EC 81 MG TABEC PO PRN (07:30)
[2017-08-29] MEDS ORDERED: TRIAMCINOLONE ACETONIDE TOPICAL PRN (07:45)
[2017-08-29 08:00] VITALS: BP 145/86; PULSE 64; RESP 18; TEMP 96.9; O2SAT 96
[2017-08-29] MEDS: SODIUM CHLORIDE 0.9% FLUSH 5 ML FLUSH IVF SCH (08:26)
[2017-08-29] MEDS ORDERED: LEVOTHYROXINE SODIUM 100 MCG TAB PO SCH (09:00)
[2017-08-29] MEDS ORDERED: LEVOTHYROXINE SODIUM 75 MCG TAB PO SCH (09:00)
== END 2017-08-29 13:27 | disposition home health service (06) ==
LOC: HSDC 05:13 → EDSTATUS 07:00 → HSDI 13:38 → N06A 13:50
PROVIDERS: ADMIT Orthopaedic Surgery; ATTEND Orthopaedic Surgery
DX: S83.015A Lateral dislocation of left patella, initial encounter (principal); S86.812A Strain of other muscle(s) and tendon(s) at lower leg level, left leg, initial encounter; Z96.652 Presence of left artificial knee joint
CPT/HCPCS: 01392; 27422; 27425; 96365; 97162; 97530; C9290; G0378; G8987; G8988; J0690; J1580; J2250; J2370; J3010; J7120

== ENCOUNTER → 2017-12-09 | Outpatient (CLI) | payer MEDICARE ==
[2017-12-09 10:23] LABS: HEMATOCRIT 40.6 % (39.0-51.0); HEMOGLOBIN 13.7 GM/DL (13.0-17.0); MEAN CELL VOLUME 82.2 FL (80.0-100.0); MEAN CORPUSCULAR HEMOGLOBIN 27.7 PG (27.0-34.0); MEAN CORPUSCULAR HGB CONC 33.6 % (32.0-36.0); MEAN PLATELET VOLUME 10.2 FL (7.0-11.0); PLATELET COUNT 222 TH/MM3 (150-450); RED BLOOD COUNT 4.94 MIL/MM3 (4.50-5.90); RED CELL DISTRIBUTION WIDTH 16.7 % (11.6-17.2)
[2017-12-09 10:48] LABS: ALBUMIN 3.9 GM/DL (3.4-5.0); AST (GOT) 15 U/L (15-37); BICARBONATE 27.7 MEQ/L (21.0-32.0); BLOOD UREA NITROGEN 17 MG/DL (7-18); CALCIUM 9.8 MG/DL (8.5-10.1); CHLORIDE 100 MEQ/L (98-107); CREATININE 1.21 MG/DL (0.60-1.30); GLOMERULAR FILTRATION RATE 58 ML/MIN (>89); GLUCOSE,FASTING 81 MG/DL (74-99); SODIUM (NA) 135 MEQ/L (136-145)
[2017-12-09 10:50] LABS: CHOLESTEROL 160 MG/DL (120-200)
[2017-12-09 10:58] LABS: ALKALINE PHOSPHATASE 85 U/L (45-117); ALT (GPT) 15 U/L (12-78); CHOLESTEROL/ HDL RATIO 2.85 RATIO; FREE T4 1.48 NG/DL (0.76-1.46); HDL CHOLESTEROL 56.1 MG/DL (40.0-60.0); LDL CHOLESTEROL 89 MG/DL (0-99); LDL CHOLESTEROL DIRECT 100 MG/DL (0-99); TOTAL BILIRUBIN ADULT 0.6 MG/DL (0.2-1.0); TOTAL PROTEIN 8.5 GM/DL (6.4-8.2); TRIGLYCERIDES 74 MG/DL (42-150)
== END ==
LOC: PLAB 08:03
PROVIDERS: ATTEND Family Medicine
DX: R53.83 Other fatigue (principal); E78.4 Other hyperlipidemia; I10 Essential (primary) hypertension; E03.8 Other specified hypothyroidism
CPT/HCPCS: 36415; 80053; 80061; 83721; 84439; 84443; 85027

== ENCOUNTER → 2018-01-09 | Outpatient (CLI) | payer MEDICARE ==
[~2018-01-09] MED LIST changes: +TRAM50TA PO
[2018-01-09 10:48] LABS: HEMATOCRIT 40.2 % (39.0-51.0); HEMOGLOBIN 13.4 GM/DL (13.0-17.0); MEAN CELL VOLUME 82.8 FL (80.0-100.0); MEAN CORPUSCULAR HEMOGLOBIN 27.7 PG (27.0-34.0); MEAN CORPUSCULAR HGB CONC 33.5 % (32.0-36.0); MEAN PLATELET VOLUME 9.9 FL (7.0-11.0); PLATELET COUNT 206 TH/MM3 (150-450); RED BLOOD COUNT 4.85 MIL/MM3 (4.50-5.90); RED CELL DISTRIBUTION WIDTH 16.5 % (11.6-17.2)
[2018-01-09 11:04] LABS: BILIRUBIN, URINE NEG (NEG); BLOOD, URINE SMALL (NEG); GLUCOSE,URINE NEG (NEG); KETONE, URINE NEG (NEG); MUCUS URINE FEW /lpf (OCC); NITRITE,URINE NEG (NEG); PH, URINE 5.5 (5.0-8.5); URINE COLOR YELLOW (YELLW/STRAW); URINE LEUKOCYTE ESTERASE NEG (NEG)
[2018-01-09 11:08] LABS: INTERNATIONAL NORMALIZED RATIO 1.1 RATIO; PROTHROMBIN TIME - PATIENT 10.8 SEC (9.8-11.6)
[2018-01-09 11:15] LABS: BICARBONATE 25.5 MEQ/L (21.0-32.0); CALCIUM 9.7 MG/DL (8.5-10.1); CREATININE 1.24 MG/DL (0.60-1.30)
--- NOTE | 2018-01-10 16:52 | EKG ---
Date Performed: 01/09/2018 Time Performed: 10:16:47 PTAGE: 77 years EKG: Sinus rhythm MARKED LEFT AXIS DEVIATION MODERATE INTRAVENTRICULAR CONDUCTION DELAY ABNORMAL ECG Compared to PREVIOUS TRACING , the marked sinus arrythmia on previous tracing no longer present, othe rwise no significant change. PREVIOUS TRACIN05/30/2017 09.38.26 DOCTOR: Jayro Desai Interpretating Date/Time 01/10/2018 16:50:06
== END ==
LOC: CPRE 09:51
PROVIDERS: ATTEND Orthopaedic Surgery
DX: Z01.812 Encounter for preprocedural laboratory examination (principal); Z01.810 Encounter for preprocedural cardiovascular examination; M22.3X2 Other derangements of patella, left knee; M79.609 Pain in unspecified limb; R94.31 Abnormal electrocardiogram [ECG] [EKG]; Z96.652 Presence of left artificial knee joint
CPT/HCPCS: 36415; 80048; 81001; 85027; 85610; 85730; 93005

== ENCOUNTER 2018-01-19 07:35 | Observation (INO) | payer MEDICARE ==
[~2018-01-19] VITALS: Ht 175.3 cm; Wt 102.5 kg
[~2018-01-19 07:35] MED LIST changes: -ASPI1TAB57 PO
[2018-01-19] MEDS ORDERED: SODIUM CHLORID 0.9% 500 ML IV PRN (08:30)
[2018-01-19] MEDS ORDERED: INSULIN HUMAN REGULAR 1,000 UNITS/10 ML VIAL SQ PRN (08:30)
[2018-01-19] MEDS ORDERED: METOPROLOL TARTRATE 25 MG TAB PO PRN (08:30)
[2018-01-19] MEDS ORDERED: LACTATED RINGER'S 1000 ML IV PRN (08:30)
[2018-01-19] MEDS ORDERED: CHLORHEXIDINE GLUCONATE 2 % 1 PACK (2 CLOTHS) TOPICAL PRN (08:30)
[2018-01-19] MEDS ORDERED: TRANEXAMIC ACID IV SCH ×5 (08:30→12:00)
[2018-01-19] MEDS ORDERED: SODIUM CHLORIDE 0.9% IV SCH ×5 (08:30→12:00)
[2018-01-19] MEDS ORDERED: POVIDONE IODINE 5% (ANTISEPSIS KIT) 4 APPLICATIONS EACH NARE PRN (08:30)
[2018-01-19] MEDS ORDERED: EXPAREL PERI-ARTICULAR INJECTION (TOTAL VOL. 100 ML) P-ARTICULR SCH ×2 (08:30)
[2018-01-19] MEDS ORDERED: CHLORHEXIDINE GLUCONATE 4% SOLN 120 ML BTL TOPICAL SCH (08:30)
[2018-01-19] MEDS ORDERED: BUPIVACAINE HCL PF 0.5% 30 ML VIAL ONE (09:25)
[2018-01-19] MEDS ORDERED: LIDOCAINE HCL 1% PF 5 ML AMPULE ONE (09:26)
[2018-01-19] MEDS ORDERED: MIDAZOLAM HCL 2 MG/2 ML VIAL ONE (09:33)
[2018-01-19] MEDS ORDERED: GENTAMICIN SULFATE 80 MG/2 ML VIAL ONE (09:37)
[2018-01-19] MEDS ORDERED: ceFAZolin INJ 1,000 MG VIAL ONE (09:37)
--- NOTE | 2018-01-19 09:40 | HHI.FF ---
Face to Face Verification Diagnosis: (1) Status post total left knee replacement (2) Lateral dislocation of left patella Physical Therapy Gait training Knee: Total knee, Protocol: Left, Gait training, Full weight bearing Left LE Weight Bearing: WB as tolerated Left LE Range of Motion: No ROM Nursing Nursing: Dressing changes Dressing Changes: Daily dressing change, Coverderm/Primapore I have seen patient Lito Kowalski on 01/19/18. My clinical findings support the need for the requested home health care services because: Ltd mobility - disease progression Limited ability to care for self High risk of falls I certify that my clinical findings support that this patient is homebound because: Post-op weakness Unsteady gait/balance Unsafe to leave home unassisted Ander Wolf MD (Charles) Jan 19, 2018 09:40
[2018-01-19] MEDS ORDERED: fentaNYL CITRATE 250 MCG/5 ML AMP ONE (10:13)
[2018-01-19] MEDS ORDERED: ZOLPIDEM TARTRATE 5 MG TAB PO PRN (11:00)
[2018-01-19] MEDS ORDERED: MORPHINE SULFATE 4 MG/ML INJ IV PUSH PRN (11:00)
[2018-01-19] MEDS ORDERED: ONDANSETRON HCL 4 MG/2 ML VIAL IVP PRN (11:00)
[2018-01-19] MEDS ORDERED: ACETAMINOPHEN/HYDROcodone 325 MG/7.5 MG TAB PO PRN ×2 (11:00)
[2018-01-19] MEDS ORDERED: LACTATED RINGER'S 1000 ML INJ 1,000 ML IV SCH (12:00)
[2018-01-19] MEDS ORDERED: MAGNESIUM HYDROXIDE SUSP 30 ML CUP PO PRN (12:00)
--- NOTE | 2018-01-19 13:25 | PD.OP ---
Operative Report Date of Surgery: Jan 19, 2018 Preoperative Diagnosis: (1) Lateral dislocation of left patella (2) Status post total left knee replacement Postoperative Diagnosis: (1) Lateral dislocation of left patella (2) Status post total left knee replacement Procedure: Reconstruction medial patellofemoral ligament with semi-tendinosis allograft and [employer] Nephew anchors, left knee. Anesthesia: Gen. endotracheal with supplemental adductor canal block regional and local with Exparel Surgeon: Gonzalo Wolf M.D. Coin Purse Framer(s): TINA Newsome Operation and Findings: Indications: This 77-year-old man has had a total knee arthroplasty in the past. Postoperatively he was doing well but was started on resistance exercises by the physical therapist. He felt pain in the superior medial aspect of the knee and subsequently had instability of his patellofemoral joint. Now coming for a reconstruction of the medial patellofemoral ligament. Physical findings showed instability of his patella. Radiographic findings showed good position and alignment of a total knee prosthesis on x-ray and CT scan. Operative findings: The patella was dislocated laterally and was able to be placed into position without much difficulty. After the repair, the patella remained in the appropriate position and alignment. Implants: 2 Michaud [employer] Nephew Q-Fix suture anchors size 1.8 mm. 1 [employer]hew Biosure Regenosorb interference screw. 1 semi-tendinosis allograft. Procedure: The patient was brought to the clean-air operating suite. He received an adductor canal block regional anesthetic and a general endotracheal anesthetic. He was placed into a supine position on the operating table. A pneumatic tourniquet was applied to the left thigh. The left lower extremity was then prepped with alcohol, Hibiclens and ChloraPrep and draped in the usual manner with the knee draped free. An appropriate timeout procedure was carried out. C-arm fluoroscopy was used to delineate the appropriate appearance of the knee preoperatively. Using the prepatellar portion of his previous incision and anterior incision was made down to just above the upper pole of patella down to the distal pole of patella. The tissue was deepened through the subcutaneous tissues and carried medially to the medial edge. Careful dissection was then carried out down to the medial retinaculum which is open approximately 4-5 mm medial to the edge of the patella. This was taken down to the very edge of the synovium. The synovium was opened in order to vacuum fluid from the joint. Culture and sensitivity was taken of the fluid that appeared to be slightly hemorrhagic. The medial edge of the patella was then carefully exposed. This was taken down to bone. With the help of C-arm fluoroscopy the tunnels for the Q fix anchors were then made in the patella, avoiding the patella prosthesis. The anchors are then positioned in place and seated appropriately. This left suture material free. A small trough of bone was then cleaned with a narrow rongeur between the 2 anchor sites. This was decorticated for vascular incorporation. Further dissection was carried out down the medial aspect of the knee between fascial layers down to the medial femoral condyle. A site of the medial femoral condyle was identified with C-arm fluoroscopy. An incision was made approximately 2.5 cm in length longitudinally. The site for placement of a Beath pin was identified with C-arm fluoroscopy placing this at the site of the femoral attachment of the medial patellofemoral ligament. A Beath pin was then drilled across from medial to lateral brought out the lateral side. A small incision was made approximately 5 mm at this site laterally. The pin was left in place. The semi-tendinosis graft was then prepared, whipstitching a #2 FiberWire Krakw suture into the end bringing the 2 ends together [id number]. After this was done, the sutures from the Q fix anchors were then passed through the loop of the graft. The graft was then passed 7 under the fascia down to the site of the Beath pin. This was done after sizing the graft and being certain that this was an appropriate size. When this was passed the sutures were then tied to the patella affixing the graft to the edge of the patella where there was the trough of decorticated subchondral bone between the 2 anchor sites. With the patella affixed to the graft, the soft tissues were then repaired over the top of the graft at the tunnel. A 7.5 reamer was then placed over the Beath pin and, taking care to prevent injury to soft tissues, reaming was then carried out into the proximal femur. C-arm fluoroscopy verified that this was the appropriate position for the graft. The sutures attached to the graft was then passed through the end of the Beath pin which was then brought out the laterals side with the sutures. The sutures were then tagged with a clamp. A guidepin was inserted into the tunnel in the femur. The graft was then passed into the tunnel. A size 7 x 25 mm interference screw was then screwed into place and seated appropriately. This was done after verifying position. When this was seated the knee was taken through a brief range of motion showing that the patella remained in the appropriate position. The medial retinacular tissues were then reefed in a pants over vest manner with #2 FiberWire interrupted Dieter-Be sutures. The operative areas were then injected with Exparel. The subcutaneous tissues were then closed with 2-0 Vicryl interrupted simple sutures with buried knots. Skin was then closed with 4-0 Monocryl continuous subcuticular closure. The wound was then further closed with Dermabond Prineo. Dry dressings were applied followed by Kevin bandage. Patient was transferred from the operating room to the recovery room in satisfactory condition having tolerated procedure well. Counts are correct. Specimens: Culture and sensitivity of synovial fluid. Estimated blood loss: 75 mL Ander Wolf MD ([place]) Jan 19, 2018 13:25
[2018-01-19] MEDS ORDERED: Post-op Orders (for Pharmacy) XX ONE (14:00)
[2018-01-19] MEDS ORDERED: DO NOT ADM ANY ANTICOAGULANT DRUGS PRN (14:15)
--- NOTE | 2018-01-19 14:22 | RADRPT ---
EXAM DATE/TIME: 01/19/2018 13:37 [facility] COMPARISON: KNEE LEFT LTD (1 OR 2VWS), June 10, 2017, 12:50. INDICATIONS : Revision of left total knee. MEDICAL HISTORY : None. SURGICAL HISTORY : Total left knee. ENCOUNTER: Initial ACUITY: 1 day PAIN SCORE: Non-responsive. LOCATION: Left knee. FINDINGS: AP and lateral views of the right knee were obtained and again demonstrate fat the patient is status post total knee arthroplasty. The metal components remain intact and in normal alignment. There is mi ld soft tissue swelling and residual gas. There is diffuse osteopenia. The surgical drains have been removed. CONCLUSION: Status post arthroplasty. Nino Pino MD on January 19, 2018 at 14:19 Board Certified Radiologist. This report was verified electronically.
[2018-01-19] MEDS: KETOROLAC TROMETHAMINE 30 MG/ML (IVP) VIAL IVP SCH ×2 (14:30→19:18)
--- NOTE | 2018-01-19 16:02 | RADRPT ---
EXAM DATE/TIME: 01/19/2018 12:28 [facility] COMPARISON: No previous studies available for comparison. INDICATIONS : Left femoral-patellar ligament reconstruction. OR. MEDICAL HISTORY : None. SURGICAL HISTORY : Total knee replacement, left. ENCOUNTER: Initial ACUITY: 1 day PAIN SCORE: Non-responsive. LOCATION: Left knee FINDINGS: Single lateral view of the left knee reveals total knee arthroplasty. There are surgical implements o verlying the patella. Alignment is grossly satisfactory. CONCLUSION: Please see operative report for additional details Bipin Burks MD on January 19, 2018 at 15:59 Board Certified Radiologist. This report was verified electronically.
[2018-01-19] MEDS ORDERED: ASPIRIN EC 81 MG TABEC ONE (19:12)
[2018-01-20 04:50] VITALS: BP 149/84; PULSE 58; RESP 18; TEMP 97.9; O2SAT 98
--- NOTE | 2018-01-20 06:08 | PD.ORT.PN ---
Subjective Post Op Day #: 1 Subjective Remarks He is doing well. He has no pain. He has been up walking. Distance Walked None recorded. Objective Vitals Vital Signs Date Time Temp Pulse Resp B/P (MAP) Pulse Ox O2 Delivery O2 Flow Rate FiO2 01/20/18 04:50 97.9 58 18 149/84 (105) 98 01/20/18 03:46 96 12 158/72 (100) 95 Room Air 01/20/18 03:00 96 12 156/76 (102) 95 Room Air 01/20/18 02:00 92 14 144/75 (98) 95 Room Air 01/20/18 01:00 94 16 152/77 (102) 94 Room Air 01/19/18 23:00 96 16 144/80 (101) 94 Room Air 01/19/18 22:00 95 16 141/78 (99) 94 Room Air 01/19/18 21:00 96 18 166/91 (116) 95 Nasal Cannula 2 01/19/18 20:30 96 18 158/99 (118) 95 Nasal Cannula 2 01/19/18 19:00 96 18 168/100 (122) 95 Nasal Cannula 2 01/19/18 18:00 97 18 170/101 (124) 95 Nasal Cannula 2 01/19/18 17:00 80 18 119/88 (98) 96 Nasal Cannula 2 01/19/18 15:45 72 18 159/75 (103) 96 Nasal Cannula 2 01/19/18 14:45 97.8 66 18 140/90 (107) 96 Nasal Cannula 2 01/19/18 14:30 66 18 170/82 (111) 97 Nasal Cannula 2 01/19/18 14:15 69 18 171/82 (111) 97 Nasal Cannula 2 01/19/18 14:00 79 18 97 Nasal Cannula 2 01/19/18 13:45 79 18 169/99 (122) 95 Nasal Cannula 2 01/19/18 13:30 81 16 157/96 (116) 97 Nasal Cannula 2 01/19/18 13:22 97.8 91 16 150/95 (113) 97 Nasal Cannula 2 01/19/18 09:33 Nasal Cannula 2 01/19/18 08:33 98.2 71 18 163/91 (115) 99 I/O 01/19/18 01/19/18 01/19/18 01/20/18 01/20/18 3/27/18 06:59 14:59 22:59 06:59 14:59 22:59 Intake Total 1850 ml 200 ml 100 ml Output Total 300 ml 200 ml 400 ml Balance 1550 ml 0 ml -300 ml Intake Oral 150 ml 200 ml 100 ml IV Total 100 ml Other 1600 ml Output Urine Total 200 ml 200 ml 400 ml Estimated Blood Loss 100 ml # Voids 1 Imaging Last 24 hours Impressions Knee X-Ray 01/19/18 0933 Signed Impressions: Service Date/Time: Friday, January 19, 2018 13:37 - CONCLUSION: Status post arthroplasty. Nino Pino MD Objective Remarks He is resting comfortably, supine in bed. He is using the CKS. The neurovascular status is intact. The dressing is dry and intact. Assessment & Plan Ortho Post Op Day #: 1 Problem List: (1) Status post total left knee replacement ICD Codes: Z96.652 - Presence of left artificial knee joint Status: Chronic Plan: Continue postop care and PT. Assessment and Plan Condition: Good. Orthopedically stable. DVT prophylaxis: Sequentials, POLLO stockings, aspirin 81 mg twice daily. Discharge plans: Home with home health care. An appointment was scheduled through the office. Prescriptions: [place] 7.5/325 I have explained his findings and operative procedure to him. I have explained that he should remain in the knee immobilizer until seen in the office. Ander Wolf MD ([place]) Jan 20, 2018 06:08
[2018-01-20 08:00] VITALS: BP 160/86; PULSE 53; RESP 18; TEMP 97.6; O2SAT 97
[2018-01-20] MEDS: KETOROLAC TROMETHAMINE 30 MG/ML (IVP) VIAL IVP SCH (08:27)
[2018-01-20] MEDS ORDERED: ASPIRIN EC 81 MG TABEC PO SCH (13:00)
[2018-01-20] MEDS ORDERED: DOCUSATE SODIUM 100 MG CAP PO SCH (21:00)
== END 2018-01-20 11:29 | disposition home or self-care (01) ==
LOC: HOR 07:35 → HSDI 09:38 → EDSTATUS 13:00 → N06A 01-20 03:59
PROVIDERS: ADMIT Orthopaedic Surgery; ATTEND Orthopaedic Surgery
DX: S83.015A Lateral dislocation of left patella, initial encounter (principal); Z96.652 Presence of left artificial knee joint; X58.XXXA Exposure to other specified factors, initial encounter
CPT/HCPCS: 01392; 27422; 73560; 76000; 87015; 87070; 87102; 87116; 87205; 87206; 94150; 96365; 96375; 96376; 97161; C9290; G0378; G8987; G8988; J0690; J1580; J1885; J2250; J3010; J7120; L1830